=== PATIENT | female | born 1995 | race American Indian/Alaskan Native ===

== ENCOUNTER 2017-12-06 09:44 | Emergency (ER) | payer SELFPAY ==
[2017-12-06 10:13] VITALS: BP 123/68
[2017-12-06 11:22] LABS: HCG Qualitative,Urine Negative (Negative)
[2017-12-06 11:25] LABS: Bilirubin,Urine NEG (Negative); Blood,Urine NEG (Negative); Color,Urine Yellow (Yellow); Mucus,Urine 3+ /HPF
== END 2017-12-06 10:30 | disposition left against medical advice (07) ==
LOC: ED 09:44
DX: N89.8 Other specified noninflammatory disorders of vagina (principal); Z53.21 Procedure and treatment not carried out due to patient leaving prior to being seen by health care provider
CPT/HCPCS: 81001; 81025

== ENCOUNTER 2020-03-06 07:45 | Emergency (ER) | payer MEDICAID, OTHER ==
[2020-03-06] MEDS ORDERED: ACETAMINOPHEN 325 MG/10.15 ML ORAL LIQD UNIT DOSE PO ONE (08:21)
--- NOTE | 2020-03-06 08:21 | Emergency Department Report ---
Upper Extremity - HPI Chief Complaint: Extremity Problem,Nontraumatic Stated Complaint: LEFT WRIST PAIN Time Seen by Provider: 03/06/20 08:08 Upper Extremity: Left Wrist, Left Hand Other History: 24 yr old female presents to ED c/o pain to left wrist/hand. Pain is mainly radial aspect of left wrist and along the first metacarpal bone. She states she has been having this pain off and since October of 2018. She states it st arted during her and assumed it was related to carpal tunnel. After the pregnacy the pain got more frequent but she did not seek any medical care for it. SHe states last night while playing with her baby she accidentally struck her wrist on wall and since then she has had increased pain and some swelling to radial aspect of left wrist and increased pain left metacarpal bone. She states she is unable to move her wrist/hand due to pain. She states she took motrin but without much relief. She reports no other symptoms at this time. ED Review of Systems ROS: Stated complaint: LEFT WRIST PAIN Other details as noted in HPI Comment: All other systems reviewed and negative Constitutional: denies: chills, fever Musculoskeletal: joint swelling, arthralgia ED Past Medical Hx - Past Medical History Previous Medical History?: No - Surgical History Past Surgical History?: No - Social History Smoking Status: Never Smoker Substance Use Type: None - Medications Home Medications: Home Medications Medication Instructions Recorded Confirmed Last Taken Type Acetaminophen [Acetaminophen 8 650 mg PO Q6H PRN #30 tablet.er 03/06/20 Unknown Rx Hour] Diclofenac 1% [Diclofenac 1% 2 gm TP QID #1 tube 03/06/20 Unknown Rx topical gel] Upper Extremity Exam - Exam General: Vital signs noted. No distress. Alert and acting appropriately. Head and Torso: No HEENT Abnormality, No Chest/Lungs Abnormality Wrist: Yes Wrist Tenderness (severe ttp radial aspect of wrist/mild swelling), Yes Snuffbox Tenderness, No Normal ROM in Wrist (ROM severely reduced due to pain), No Wrist Deformity Hand: Yes Hand Tenderness (Severe ttp along the first metacarpal bone of left hand), No Hand Deformity, No Digit Tenderness, No Normal ROM in Digit(s) (Pt limited flex of left thumb due to increased pain along the metacarpal bone. ), No Digit(s) Deformity, No Tendon Dysfunction CMS Exam: Yes Normal Distal Pulses, Yes Normal Capillary Refill, Yes Normal Distal Sensation, No Broken Skin ED Course Vital Signs 03/06/20 07:49 Temperature 98.2 F Pulse Rate 69 Respiratory 16 Rate Blood Pressure 120/80 [Left] O2 Sat by Pulse 100 Oximetry ED Medical Decision Making - Radiology Data Radiology results: report reviewed Critical care attestation.: If time is entered above; I have spent that time in minutes in the direct care of this critically ill patient, excluding procedure time. ED Disposition Clinical Impression: Contusion, wrist, Left wrist tendonitis, De Quervain's disease (tenosynovitis) Disposition: TO HOME OR SELFCARE Is pt being admited?: No Does the pt Need Aspirin: No Condition: Stable Instructions: De Quervain Disease (ED), Contusion in Adults (ED) Additional Instructions: I recommend that you wear the wrist splint as instructed. I recommend limited use of wrist/hand for the next 4-5 days. you can apply ice to help with pain or swelling. I recommend you follow up with [facility] for continued evaluation/care of your wrist/hand pain. Take medications as prescribed. Return to ED if anything changes or worsens. Prescriptions: Acetaminophen [Acetaminophen 8 Hour] 650 mg PO Q6H PRN #30 tablet.er PRN Reason: Pain , Severe (7-10) Diclofenac 1% [Diclofenac 1% topical gel] 2 gm TP QID #1 tube Referrals: NEY NARANJO MD [Primary Care Provider] - 3-5 Days Forms: Work/School Release Form(ED) Time of Disposition: 09:11
--- NOTE | 2020-03-06 08:56 | XRay Report ---
LEFT HAND 3 VIEWS INDICATION: Left hand injury pain. COMPARISON: No relevant prior imaging study available. FINDINGS: No acute skeletal abnormality. No foreign bodies or significant soft tissue swelling. No degenerative changes. IMPRESSION: 1. No acute findings. Signer Name: Carrillo Harris MD Signed: 03/06/2020 8:51 AM Workstation Name: [id number]
[2020-03-06 10:25] VITALS: BP 122/70
== END 2020-03-06 10:23 | disposition home or self-care (01) ==
LOC: ED 07:45
DX: S60.212A Contusion of left wrist, initial encounter (principal); M65.4 Radial styloid tenosynovitis [de Quervain]; Z79.899 Other long term (current) drug therapy; X58.XXXA Exposure to other specified factors, initial encounter; Y93.89 Activity, other specified; Y92.89 Other specified places as the place of occurrence of the external cause; Y99.8 Other external cause status

== ENCOUNTER 2020-05-13 16:34 | Emergency (ER) | payer OTHER ==
--- NOTE | 2020-05-13 17:14 | Emergency Department Report ---
ED ENT HPI - General Chief complaint: Dental/Oral Stated complaint: SWOLLEN FACE Time Seen by Provider: 05/13/20 17:07 Source: patient Mode of arrival: Ambulatory Limitations: No Limitations - History of Present Illness MD complaint: tooth pain -: Gradual (Gradual recurrent pain), Sudden Location: tooth # Severity: mild, moderate Quality: dull Consistency: constant Improves with: none Worsens with: eating Context- Dental: history of dental caries Associated Symptoms: toothache - Related Data Previous Rx's Medication Instructions Recorded Last Taken Type Acetaminophen [Acetaminophen 8 650 mg PO Q6H PRN #30 tablet.er 03/06/20 Unknown Rx Hour] Diclofenac 1% [Diclofenac 1% 2 gm TP QID #1 tube 03/06/20 Unknown Rx topical gel] Amoxicillin [Amoxicillin TAB] 875 mg PO BID #20 tablet 05/13/20 Unknown Rx Chlorhexidine Mouthwash [Peridex] 15 ml MM BID #1 bottle 05/13/20 Unknown Rx Fluconazole [Diflucan] 150 mg PO ONCE #3 tablet 05/13/20 Unknown Rx Ketorolac [Toradol] 10 mg PO Q6H PRN #15 tablet 05/13/20 Unknown Rx Lidocaine Viscous 2% 5 ml MM Q3H PRN #120 udc 05/13/20 Unknown Rx Allergies Allergy/AdvReac Type Severity Reaction Status Date / Time No Known Allergies Allergy Unverified 12/06/17 10:09 ED Dental HPI - General Chief complaint: Dental/Oral Stated complaint: SWOLLEN FACE Time Seen by Provider: 05/13/20 17:07 Source: patient Mode of arrival: Ambulatory Limitations: No Limitations - Related Data Previous Rx's Medication Instructions Recorded Last Taken Type Acetaminophen [Acetaminophen 8 650 mg PO Q6H PRN #30 tablet.er 03/06/20 Unknown Rx Hour] Diclofenac 1% [Diclofenac 1% 2 gm TP QID #1 tube 03/06/20 Unknown Rx topical gel] Amoxicillin [Amoxicillin TAB] 875 mg PO BID #20 tablet 05/13/20 Unknown Rx Chlorhexidine Mouthwash [Peridex] 15 ml MM BID #1 bottle 05/13/20 Unknown Rx Fluconazole [Diflucan] 150 mg PO ONCE #3 tablet 05/13/20 Unknown Rx Ketorolac [Toradol] 10 mg PO Q6H PRN #15 tablet 05/13/20 Unknown Rx Lidocaine Viscous 2% 5 ml MM Q3H PRN #120 udc 05/13/20 Unknown Rx Allergies Allergy/AdvReac Type Severity Reaction Status Date / Time No Known Allergies Allergy Unverified 12/06/17 10:09 ED Review of Systems ROS: Stated complaint: SWOLLEN FACE Other details as noted in HPI Comment: All other systems reviewed and negative ED Past Medical Hx - Past Medical History Previous Medical History?: No - Surgical History Past Surgical History?: No - Social History Smoking Status: Never Smoker Substance Use Type: None - Medications Home Medications: Home Medications Medication Instructions Recorded Confirmed Last Taken Type Acetaminophen [Acetaminophen 8 650 mg PO Q6H PRN #30 tablet.er 03/06/20 Unknown Rx Hour] Diclofenac 1% [Diclofenac 1% 2 gm TP QID #1 tube 03/06/20 Unknown Rx topical gel] Amoxicillin [Amoxicillin TAB] 875 mg PO BID #20 tablet 05/13/20 Unknown Rx Chlorhexidine Mouthwash [Peridex] 15 ml MM BID #1 bottle 05/13/20 Unknown Rx Fluconazole [Diflucan] 150 mg PO ONCE #3 tablet 05/13/20 Unknown Rx Ketorolac [Toradol] 10 mg PO Q6H PRN #15 tablet 05/13/20 Unknown Rx Lidocaine Viscous 2% 5 ml MM Q3H PRN #120 udc 05/13/20 Unknown Rx ED Physical Exam - General Limitations: No Limitations General appearance: alert, in no apparent distress - Head Head exam: Present: atraumatic, normocephalic - Eye Eye exam: Present: normal appearance, PERRL Pupils: Present: normal accommodation - ENT ENT exam: Present: mucous membranes moist, other (dental abscess with several caries) - Neck Neck exam: Present: normal inspection - Respiratory Respiratory exam: Present: normal lung sounds bilaterally. Absent: respiratory distress - Cardiovascular Cardiovascular Exam: Present: regular rate, normal rhythm. Absent: systolic murmur, diastolic murmur, rubs, gallop - GI/Abdominal GI/Abdominal exam: Present: soft, normal bowel sounds - Extremities Exam Extremities exam: Present: normal inspection - Back Exam Back exam: Present: normal inspection. Absent: CVA tenderness (R), CVA tenderness (L) - Neurological Exam Neurological exam: Present: alert, oriented X3, CN II-XII intact - Psychiatric Psychiatric exam: Present: normal affect, normal mood - Skin Skin exam: Present: warm, dry, intact, normal color. Absent: rash Critical care attestation.: If time is entered above; I have spent that time in minutes in the direct care of this critically ill patient, excluding procedure time. ED Disposition Clinical Impression: Infected dental caries Disposition: TO HOME OR SELFCARE Is pt being admited?: No Does the pt Need Aspirin: No Condition: Stable Instructions: Dental Abscess, Preventive Dental Care, Adult Prescriptions: Amoxicillin [Amoxicillin TAB] 875 mg PO BID #20 tablet Fluconazole [Diflucan] 150 mg PO ONCE #3 tablet Lidocaine Viscous 2% 5 ml MM Q3H PRN #120 udc PRN Reason: Pain, Moderate (4-6) Chlorhexidine Mouthwash [Peridex] 15 ml MM BID #1 bottle Ketorolac [Toradol] 10 mg PO Q6H PRN #15 tablet PRN Reason: Pain Referrals: [facility] [Outside] - 3-5 Days
== END 2020-05-13 18:08 | disposition home or self-care (01) ==
LOC: ED 16:34
DX: K02.9 Dental caries, unspecified (principal); K04.7 Periapical abscess without sinus; Z79.2 Long term (current) use of antibiotics; Z79.899 Other long term (current) drug therapy
CPT/HCPCS: 99281

== ENCOUNTER 2021-03-21 07:56 | Emergency (ER) | payer OTHER ==
[2021-03-21 08:16] VITALS: BP 140/104
[2021-03-21] MEDS ORDERED: KETOROLAC 30 MG/1 ML INJ IM ONE (08:35)
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
== END 2021-03-21 11:08 | disposition home or self-care (01) ==
LOC: ED 07:56
DX: S29.9XXA Unspecified injury of thorax, initial encounter (principal); V29.9XXA Motorcycle rider (driver) (passenger) injured in unspecified traffic accident, initial encounter; Y93.89 Activity, other specified; Y92.89 Other specified places as the place of occurrence of the external cause; Y99.8 Other external cause status
CPT/HCPCS: 72070; 96372; 99283; J1885